=== PATIENT | female | born 1970 | race Hispanic/Latino ===

== ENCOUNTER 2025-02-28 14:07 | Emergency (ER) | payer SELFPAY ==
--- OUTSIDE RECORDS SUMMARY | 2025-02-28 14:09 | XMS REPORT | Continuity of Care Document ---
Author Name Unknown Address [address] [facility] [address] [place] [address] [facility] Address [address] [facility] [address] [place] [address] Care Team Providers Care [facility] Representative Name Role Phone Mike JOSEPH, Seamus Primary Care Physician Vital Signs Vital Name Observation Time Observation Value Comments S ource Height Measured 2024-12-31 14:23:00 66.33 inches Lele Recinos Body Temperature 2024-12-31 14:23:00 98.20 degrees Lele Recinos Heart Rate 2024-12-31 14:23:00 69.00 /min Carolynn en Sachin Recinos Respiratory Rate 2024-12-31 14:23:00 18.00 /min Lele Recinos BP Systolic 2024-12-31 14:23:00 117 mm[Hg] Step hen Sachin Recinos BP Diastolic 2024-12-31 14:23:00 76 mm[Hg] Iggy Recinos Weight Measured 2024-12-31 14:23:00 195.60 pounds Lele Recinos Encounters Start Date/Time End Date/Time Encounter Type Admission Type Attending [facility] Facility Care Department Encounter ID Source 2024-12-31 14:09:07 2024-12-31 14:09:07 Outpatient [facility] [id number] Lele Recinos 2024-12-31 00:00:00 2024-12-31 00:00:00 Outpatient Visit [facility] [id number] Lele Recinos Notes Date/Time Note Provider Source Lele SachinShu [facility]
[2025-02-28 15:53] LABS: Influenza A Ag Negative; Influenza B Ag Negative; SARS-CoV-2 Antigen Rapid Res Negative (Negative)
--- NOTE | 2025-02-28 16:24 | RAD REPORT ---
EXAM: Chest Pa And Lat (2 Views) HISTORY: 54 years Female COUGH COMPARISON: No prior exams FINDINGS: LUNGS/PLEURA: The lungs are clear. No pleural effusions or pneumothorax. No pulmonary edema. CARDIAC/MEDIASTINUM: The cardiac silhouette is within normal limits. UPPER ABDOMEN: No significant abnormality. BONES: No acute abnormality. LINES/TUBES/OTHER: N/A IMPRESSION: No evidence of acute cardiopulmonary disease.
--- NOTE | 2025-02-28 16:48 | ER ---
Nurse's Notes [facility] Name: Zoraida Fairchild Age: 54 yrs Sex: Female : 1970 Arrival Date: 02/28/2025 Time: 14:07 Bed 9 Private MD: Diagnosis: Cough Presentation: 02/28 14:27 Chief complaint: Patient states: COUGH, CONGESTION SORE THROAT AND FEVER X 2 WEEKS. db STATES GOT WET AND FROM THE RAIN AND STARTED FEELING MORE SICK. Coronavirus screen: Client denies travel out of the [place] in the last 14 days. At this time, the client does not indicate any symptoms associated with coronavirus-19. Ebola Screen: Patient negative for fever greater than or equal to 101.5 degrees Fahrenheit, and additional compatible Ebola Virus Disease symptoms Patient denies exposure to infectious person. Patient denies travel to an Ebola-affected area in the 21 days before illness onset. No symptoms or risks identified at this time. Initial Sepsis Screen: Does the patient meet any 2 criteria? No. Patient's initial sepsis screen is negative. Does the patient have a suspected source of infection? No. Patient's initial sepsis screen is negative. Risk Assessment: Do you want to hurt yourself or someone else? Patient reports no desire to harm self or others. Onset of symptoms was February 28, 2025. 14:27 Method Of Arrival: Ambulatory db 14:27 Acuity: JILL 3 db Triage Assessment: 14:29 General: Appears in no apparent distress. comfortable, Behavior is calm, cooperative. db Pain: Complains of pain in chest and neck. Neuro: Level of Consciousness is awake, alert, obeys commands, Oriented to person, place, time, situation. Respiratory: Reports cough that is productive, Airway is patent Respiratory effort is even, unlabored, Respiratory pattern is regular, symmetrical, Onset: The symptoms/episode began/occurred gradually, the patient has mild shortness of breath. 17:00 General: Appears in no apparent distress. comfortable, Behavior is calm, cooperative, rg5 appropriate for age. Cardiovascular: Denies chest pain. Respiratory: Reports cough that is productive. GI: Abdomen is round non-distended. : No signs and/or symptoms were reported regarding the genitourinary system. Derm: No signs and/or symptoms reported regarding the dermatologic system. Musculoskeletal: Circulation, motion, and sensation intact. Range of motion: intact in all extremities. Historical: - Allergies: 14:29 No Known Allergies; db - PMHx: 14:29 None; db - Immunization history:: Adult Immunizations unknown. - Infectious Disease History:: Denies. - Social history:: Smoking status: Patient reports the use of cigarette tobacco products, smokes one-half pack cigarettes per day. Vital Signs: 14:27 BP 133 / 081; Pulse 80; Resp 16; Temp 98.4(O); Pulse Ox 98% ; Weight 81.65 kg; Height 5 db ft. 6 in. ; 17:00 BP 123 / 78; Pulse 79; Resp 17; Pulse Ox 99% on R/A; Pain 0/10; rg5 14:27 Body Mass Index 29.05 (81.65 kg, 167.64 cm) db 17:00 Pain Scale: Adult rg5 ED Course: 14:10 Patient arrived in ED. mr 14:17 Aldair Patric[facility]. cp 14:17 Aldair Ricci MD is Attending Physician. cp 14:29 Triage completed. db 14:29 Arm band placed on right wrist. db 15:16 XRAY Chest Pa And Lat (2 Views) In Process Unspecified. EDMS 15:30 Group A Streptococcus Rapid Sent. db 15:30 COVID-19 Ag + Flu A+B Ag Sent. db 15:36 Christiano Alba, SONG is Primary Nurse. rg5 17:00 No provider procedures requiring assistance completed. Patient did not have IV access rg5 during this emergency room visit. Administered Medications: No medications were administered Outcome: 16:48 Discharge ordered by . cp 17:16 Patient left the ED. rg5 17:16 Discharged to home ambulatory, rg5 17:16 Condition: stable 17:16 Discharge instructions given to patient, Instructed on discharge instructions, Demonstrated understanding of instructions, Prescriptions given X 3, Signatures: Dispatcher [employer] EDAK AguilarMary, Alejandro Reg Aldair Patricio PA-C PA-C cp Benton, Danielle, SONG RN db Christiano Alba, RN RN rg5
--- NOTE | 2025-02-28 16:48 | EDPHYS ---
Physician Documentation [facility] Name: Zoraida Fairchild Age: 54 yrs Sex: Female : 1970 Arrival Date: 02/28/2025 Time: 14:07 Bed 9 Private MD: ED Physician Aldair Ricci HPI: 02/28 14:32 This 54 yrs old Female presents to ER via Ambulatory with complaints of cp Breathing Difficulty, Cough, Congestion, Fever. 14:32 The patient or guardian reports cough, that is intermittent, sounds productive, cp difficulty breathing. 14:32 Onset: The symptoms/episode began/occurred 2 week(s) ago. Associated signs and cp symptoms: Pertinent positives: fever, sore throat, Pertinent negatives: diarrhea, vomiting. Severity of symptoms: in the emergency department the symptoms are unchanged despite home interventions. Historical: - Allergies: 14:29 No Known Allergies; db - PMHx: 14:29 None; db - Immunization history:: Adult Immunizations unknown. - Infectious Disease History:: Denies. - Social history:: Smoking status: Patient reports the use of cigarette tobacco products, smokes one-half pack cigarettes per day. ROS: 14:35 Constitutional: Positive for fever, Negative for body aches, chills, poor PO intake, cp 14:35 Eyes: Negative for injury, pain, redness, and discharge, cp 14:35 ENT: Positive for sore throat, Negative for drainage from ear(s), ear pain, difficulty swallowing, difficulty handling secretions, 14:35 Respiratory: Positive for cough, "sounds productive", 14:35 Abdomen/GI: Negative for abdominal pain, vomiting, diarrhea, constipation, 14:35 Neuro: Negative for altered mental status, headache, weakness, 14:35 All other systems are negative, Exam: 14:38 Constitutional: The patient appears in no acute distress, alert, awake, non-toxic, well cp developed, well nourished, 14:38 Head/Face: Normocephalic, atraumatic. cp 14:38 Eyes: Periorbital structures: appear normal, Conjunctiva: normal, no exudate, no injection, Sclera: no appreciated abnormality, Lids and lashes: appear normal, bilaterally, 14:38 ENT: External ear(s): are unremarkable, Nose: is normal, Mouth: Lips: moist, Oral mucosa: moist, Posterior pharynx: Airway: no evidence of obstruction, patent, 14:38 Neck: ROM/movement: is normal, is supple, without pain, no range of motions limitations, no meningismus, 14:38 Chest/axilla: Inspection: normal, 14:38 Cardiovascular: Rate: normal, Rhythm: regular, JVD: is not appreciated, 14:38 Respiratory: the patient does not display signs of respiratory distress, Respirations: normal, no use of accessory muscles, no retractions, labored breathing, is not present, Breath sounds: bronchial sounds, that are mild, are heard diffusely, stridor, is not appreciated, wheezing: is not appreciated, 14:38 Abdomen/GI: Exam negative for discomfort, distension, guarding, Inspection: abdomen appears normal, 14:38 Skin: no rash present. 14:38 Back: pain, is absent, ROM is normal, cp Vital Signs: 14:27 BP 133 / 081; Pulse 80; Resp 16; Temp 98.4(O); Pulse Ox 98% ; Weight 81.65 kg; Height 5 db ft. 6 in. ; 17:00 BP 123 / 78; Pulse 79; Resp 17; Pulse Ox 99% on R/A; Pain 0/10; rg5 14:27 Body Mass Index 29.05 (81.65 kg, 167.64 cm) db 17:00 Pain Scale: Adult rg5 MDM: 14:29 Medical Screening Exam initiated cp 15:00 Differential diagnosis: bronchitis, flu, URI, pneumonia. cp 15:26 Independent interpretation of the following test(s) in the Emergency Department X-Ray: cp My interpretation is chest images negative for infiltrates. 16:48 Data reviewed: vital signs, nurses notes, lab test result(s), radiologic studies, plain cp films, and as a result, I will discharge patient. 16:48 Test considered but Not performed: EKG: r/o cardiac arrythmia. Labs: cbc, cmp. CT: cp chest. Counseling: I had a detailed discussion with the patient and/or guardian regarding the historical points, exam findings, and any diagnostic results supporting the discharge/admit diagnosis, lab results, radiology results, to return to the emergency department if symptoms worsen or persist or if there are any questions or concerns that arise at home. 02/28 14:32 Order name: COVID-19 Ag + Flu A+B Ag; Complete Time: 16:47 cp 02/28 14:32 Order name: Group A Streptococcus Rapid; Complete Time: 16:47 cp 02/28 14:32 Order name: UA Rfx Rahul Cult if indicated cp 02/28 14:32 Order name: Test, Urine cp 02/28 16:09 Order name: Throat Culture EDMS 02/28 14:32 Order name: XRAY Chest Pa And Lat (2 Views); Complete Time: 16:47 cp Administered Medications: No medications were administered Disposition Summary: 02/28/25 16:48 Discharge Ordered Notes: Location: Home cp Problem: new cp Symptoms: have improved cp Condition: Stable cp Diagnosis - Cough cp Followup: cp - With: Private Physician - When: 2 - 3 days - Reason: Worsening of condition Discharge Instructions: - Discharge Summary Sheet cp - Cough, Adult cp Forms: - Medication Reconciliation Form cp - Antibiotic Education cp - Prescription Opioid Use cp - Patient Portal Instructions cp - Leadership Thank You Letter cp Prescriptions: - Bromfed DM 2-30-10 mg/5 mL Oral syrup - administer 10 milliliter ORAL route every 8 hours as needed for cold symptoms; cp 180 milliliter; Refills: 0, Product Selection Permitted - albuterol sulfate 90 mcg/actuation Inhalation HFA Aerosol Inhaler - inhale 1 puff INHALATION route every 4-6 hours as needed for shortness of cp breath or wheezing; 1 unit; Refills: 0, Product Selection Permitted - Zithromax Z-Dami 250 mg Oral Tablet - take 1 tablet ORAL route as directed for 5 days Day 1 - take two (2) tablets cp one time. Day 2, 3, 4 , 5 take one (1) tablet once daily.; 6 tablet; Refills: 0, Product Selection Permitted Signatures: Dispatcher [employer] EDMS Aldair Patricio PA-C PA-C cp Benton, Danielle, RN RN db Corrections: (The following items were deleted from the chart) 14:32 14:32 UA Rfx Rahul Cult if indicated+U.LAB.BRZ ordered. EDMS EDMS 14:32 14:32 Test, Urine+UC.LAB.BRZ ordered. EDMS EDMS
[2025-02-28 16:50] LABS: Sqamous Epithelial <5 /HPF (None Seen); Urine Culture Reflex Order NOT NEEDED; Urine Microscopic Reflex YN ORDER UMIC; Urine Yeast (Budding) Trace /HPF (None Seen)
[2025-02-28 17:45] VITALS: BP 133/081; TEMP 98.4; O2SAT 98
== END 2025-02-28 17:16 | disposition home or self-care (01) ==
LOC: ER 14:07
DX: R05.9 Cough, unspecified (principal); R50.9 Fever, unspecified; Z11.52 Encounter for screening for COVID-19
CPT/HCPCS: 36415; 71046; 81001; 81025; 87070; 87428; 99283